=== PATIENT | male | born 1960 | race Two or more races ===

== ENCOUNTER 2023-05-05 05:44 | Emergency (ER) | payer SELFPAY ==
[~2023-05-05] VITALS: Ht 170.2 cm; Wt 88.6 kg
[2023-05-05 05:49] VITALS: TEMP 98.2
[2023-05-05] MEDS ORDERED: PITA2TAB2 PO (05:53)
[2023-05-05] MEDS ORDERED: LISI20TA24 PO (05:53)
[2023-05-05] MEDS ORDERED: LEVO150T11 PO (05:53)
[2023-05-05] MEDS ORDERED: ASPI-1450 PO (05:53)
[2023-05-05 06:00] LABS: COVID AG,FIA SOURCE NASAL SWAB
[2023-05-05 06:36] LABS: INFLUENZA TYPE A NEGATIVE FOR TYPE A (NEGATIVE); INFLUENZA TYPE B NEGATIVE FOR TYPE B (NEGATIVE); SARS-COV2 (COVID) ANTIGEN,FIA Negative (Negative)
[2023-05-05 07:32] VITALS: BP 150/95; PULSE 77; RESP 16
[2023-05-05] MEDS ORDERED: AMOX500C2 PO (07:34)
== END 2023-05-05 07:45 | disposition home or self-care (01) ==
LOC: EMS 05:48
DX: J32.9 Chronic sinusitis, unspecified (principal); I10 Essential (primary) hypertension; Z86.73 Personal history of transient ischemic attack (TIA), and cerebral infarction without residual deficits; Z20.822 Contact with and (suspected) exposure to COVID-19
CPT/HCPCS: 87804; 99283